=== PATIENT | female | born 1995 | race Caucasian/White ===

== ENCOUNTER 2017-02-20 12:04 | Inpatient (IN) | payer BC ==
[~2017-02-20] VITALS: Ht 165.1 cm; Wt 78.6 kg
[~2017-02-20 12:04] MED LIST: ACET500C5 PO; CEPH-443 PO; CIPR500T4 PO; NITR-58 PO; PHEN-538 PO
[2017-02-20 12:39] VITALS: Ht 165.1 cm; Wt 78.6 kg
[2017-02-20 12:40] VITALS: BP 127/82; PULSE 90; RESP 18
[2017-02-20] MEDS ORDERED: LACTATED RINGER'S 1,000 ML IV SCH (13:44)
--- NOTE | 2017-02-20 13:44 | TRIAGE ---
OB Triage Datetime Report Generated by CPN: 02/20/2017 13:43 Datetime: 02/20/2017 13:05 Labor Evaluation Frequency: 1-4 Monitor Mode: External Duration (sec)2399: 40-70 Quality: Mild Pattern: Normal: <= 5 Contractions in 10 Minutes Resting Tone [place]: Relaxed Heart Rate FHR Baseline Rate: 145 Monitor Mode: External US FHR Baseline Changes: No Baseline Change Variability: Moderate 6-25 bpm Accelerations: 15X15 Decelerations: None Category: Category I Pain Assessment Pain Scale: 0 Pain Presence: None/Denies Pain Type: N/A Pain Goal: 3 Membrane Status: Ruptured Datetime: 02/20/2017 13:03 Comments: Assume care of pt at this time, report take from Anuja RN Datetime: 02/20/2017 12:51 Vaginal Exam Dilatation (cms): 1.0 Effacement (%): 90 Station: -1 Exam By: GALEN RN Datetime: 02/20/2017 12:47 Assessment Type: Admission Assessment EGA: 39.5 Maternal Assessment Level of Consciousness: Fully Conscious DTR's/Clonus: DTRs 2+; No Clonus Headache: Denies Blurred Vision: No Respiratory Effort: Unlabored; Regular Rhythm; Equal Expansion Breath Sounds, Left: Clear and Equal Breath Sounds, Right: Clear and Equal Nausea/Vomiting: Denies RUQ Epigastric Pain: Denies Lower Extremities Edema: None Degree: None Upper Extremities Edema: None Degree: None Facial Edema: None Fall Risk Assessment History of Falling: (0) No Secondary Diagnosis: (0) No Ambulatory Aid: (0) Bedrest/Nurse Assist IV Therapy: (0) No Gait: (0) Normal/Bedrest/Immobile Mental Status: (0) Oriented to Own Ability Fall Score: 0 Fall Risk Score Definition: No Risk: No action required Labor Evaluation Frequency: 1.5-3 Monitor Mode: External Duration (sec)2399: 60-100 Quality: Mild Pattern: Normal: <= 5 Contractions in 10 Minutes Resting Tone [place]: Relaxed Heart Rate FHR Baseline Rate: 145 Monitor Mode: External US Variability: Moderate 6-25 bpm Accelerations: 15X15 Decelerations: None Category: Category I Pain Assessment Pain Scale: 0 Pain Presence: None/Denies Pain Type: N/A Pain Goal: 4 Datetime: 02/20/2017 12:45 Time of Arrival: 02/20/2017 11:55 Arrived By: Ambulatory Arrived From: Home Chief Complaint: LEAKING SINCE 1130 Movement: Present Contractions: Denies/Absent Rupture of Membranes: Denies Vaginal Bleeding: None Vaginal Discharge: Present Recent Sexual Intercouse: Denies Abdominal Trauma: Not Applicable Patient Complaints: Other Time Provider Notified: 02/20/2017 13:30 Provider Notified: DR JENKINS Initial Plan: NST, ROM+
[2017-02-20] MEDS ORDERED: CARBOPROST 250 MCG INJ IM PRN ×2 (14:00→15:00)
[2017-02-20] MEDS ORDERED: METHYLERGONOVINE 0.2 MG INJ IM PRN ×2 (14:00→15:00)
[2017-02-20] MEDS ORDERED: LIDOCAINE 1% (MPF) 30 ML INJ INJ PRN ×2 (14:00→15:00)
[2017-02-20] MEDS ORDERED: AMPICILLIN 2 GM/NS (PMX) 100 ML IV ONE (14:00)
[2017-02-20] MEDS ORDERED: LACTATED RINGER'S 1,000 ML IV PRN ×2 (14:00→16:00)
[2017-02-20] MEDS ORDERED: MISOPROSTOL 200 MCG TAB PR PRN (14:00)
[2017-02-20] MEDS ORDERED: OXYTOCIN 30 UNITS/LR 500 ML IV SCH ×3 (14:00→23:00)
[2017-02-20] MEDS ORDERED: IBUPROFEN 600 MG TAB PO PRN ×2 (14:00→15:00)
[2017-02-20] MEDS ORDERED: BUTORPHANOL 2 MG INJ IV PRN ×3 (14:00→15:00)
[2017-02-20] MEDS ORDERED: OXYTOCIN 30 UNITS/LR 500 ML IV PRN ×2 (14:00→15:00)
[2017-02-20 14:02] LABS: ADD SCAN DIFF NO
[2017-02-20 14:05] LABS: BASOPHILS % 0.4 % (0.0-2.0); EOSINOPHILS # 0.2 10^3/ul (0.0-0.5); EOSINOPHILS % 2.2 % (0.0-7.0); HEMATOCRIT 35.3 % (37.0-47.0); HEMOGLOBIN 11.9 g/dl (12.0-16.0); LYMPHOCYTES # 1.9 10^3/ul (0.8-2.9); MEAN CORPUSCULAR HEMOGLOBIN 28.3 pg (29.0-33.0); MEAN CORPUSCULAR HGB CONC 33.7 g/dl (32.0-37.0); MEAN CORPUSCULAR VOLUME 83.8 fl (82.0-101.0); MONOCYTE # 0.8 10^3/ul (0.3-0.9); MONOCYTES % 8.4 % (0.0-11.0); NEUTROPHIL # 6.6 10^3/ul (1.6-7.5); NEUTROPHILS % 68.1 % (39.0-77.0); PLATELET COUNT 155 10^3/UL (140-415); RED BLOOD COUNT 4.21 10^6/ul (4.20-5.40); RED CELL DISTRIBUTION WIDTH 13.6 % (11.5-14.5); WHITE BLOOD COUNT 9.6 10^3/ul (4.8-10.8)
[2017-02-20 14:19] LABS: INR 0.86; PROTIME 11.7 Sec (12.2-14.2); PT RATIO 0.9
[2017-02-20 14:20] LABS: PARTIAL THROMBOPLASTIN TIME 28.4 Sec (25.0-35.0)
--- NOTE | 2017-02-20 14:59 | RADRPT ---
PROCEDURE: Obstetrical ultrasound CLINICAL INDICATION: SROM TECHNIQUE: Multiple sonographic images of the pelvis were obtained. The images were reviewed on a PACS workstation. COMPARISON: Obstetrical ultrasound from 09/23/2016 FINDINGS: The cervix is not well visualized. There is a single viable intrauterine gestation. Cardiac activity is present with 126 beats per minute. There is a vertex presentation. The placenta is left lateral in location. There is no evidence for an abruption or placenta previa. There is a mildly low amount of amniotic fluid with an CHANTEL = 7.8 cm. Measurements were made in order to determine age. The results are as follows (cm): BPD =8.52 (34 weeks, 2 days) HC =31.51 (35 weeks, 3 days) AC =35.79 (39 weeks, 5 days) FL =7.32 (37 weeks, 3 days) FL/BPD = 85.8% (normal: 71-87%) HC/AC = 0.88 (normal: 0.92 - 1.06) FL/AC = 20.44 (normal: 20.0 - 24.0) Estimated gestational age by ultrasound of approximately 36 weeks, 5 days. The estimated date of delivery by ultrasound is 03/15/2017. Estimated gestational age by LMP of approximately 39 weeks, 5 days. The estimated date of delivery by LMP is 02/22/2017. EFW = 3365 grams (32nd percentile) IMPRESSION: Single viable intrauterine gestation of approximately 36 weeks, 5 days . The estimated date of delivery is 03/15/2017 . Dating by ultrasound is within 3 weeks of dating by LMP. Dating by BPD yields a gestational age of 34 weeks, 2 days while dating by AC yields a gestational a ge of 39 weeks, 5 days. The HC/AC ratio is mildly low at 0.88, as above. Estimated weight is in the 32nd percentile. Mildly low CHANTEL of 7.8 cm. Cephalic presentation. RPTAT: EE Physician Jordy Date Time Electronically viewed and signed by Ariel Chambers Physician on 02/20/2017 14:58 RA/
[2017-02-20] MEDS: LACTATED RINGER'S 1,000 ML IV SCH ×2 (15:38→20:37)
[2017-02-20] MEDS ORDERED: AMPICILLIN 1 GM/NS (PMX) 50 ML IV SCH (18:00)
--- NOTE | 2017-02-20 19:58 | HP ---
Date/Time of Note Date/Time of Note DATE: 02/20/17 TIME: 19:56 OB - History Hx of Present Chief Complaint: SROM Estimated Due Date: February 22, 2017 : 3 Para: 0 Spontaneous : 2 Therapeutic : 0 Care: Good Care Ultrasounds: Normal mid trimester US Obstetrical Complications: None Medical Complications: None Past Family/Social History * Past Medical, Surgical, Family and Obstetric Histories reviewed from chart. GBS Status: Negative OB Admission Exam Vital Signs Vital Signs Vital Signs Date Time Temp Pulse Resp B/P Pulse Ox O2 Delivery O2 Flow Rate FiO2 02/20/17 12:40 98.9 90 18 127/82 Room Air Physical Exam HEENT: WNL Heart: Rhythm Normal Lungs: Clear Abdomen: WNL Extremities: Normal Cervical Dilatation: 3cm Effacement: 75% Station: -1 Membranes: Ruptured Amniotic Fluid: Clear Heart Rate: 140's Accelerations: Accelerations Present Decelerations: No Decelerations Varibility: Moderate Last 72 hours Lab Results CBC & BMP 02/20/17 13:45 OB Assessment/Plan Reason for admission: active labor, rupture of membranes Plan: Expectant Management ALMAZ BENJAMIN MD February 20, 2017 19:58
[2017-02-21] MEDS: MISOPROSTOL 200 MCG TAB PR PRN ×2 (00:10→00:41)
--- NOTE | 2017-02-21 00:24 | LDN ---
Date/Time of Note Date/Time of Note DATE: 02/21/17 TIME: 00:21 Delivery Summary Weeks of Gestation 39 weeks and 5 days Placenta Delivered: Spontaneously Meconium: none Episiotomy: No Perineal laceration: 1 Laceration repair: Second degree laceration repaired with 3-0 Vicryl and 3-0 chromic Anesthesia type: Local Estimated blood loss: 700 Sponge & Needle done & correct: Yes All needle counts correct: Yes Any foreign bodies felt in the: No Problems: Infant Delivery Information Sex Infant Sex: male Apgars 1 Minute: 9 5 Minute: 9 Suctioning Nose & mouth suctioned at rika: Yes Delee suction performed: No Umbilical Cord Umbilical cord with: 3 Vessels Cord presentations: no nuchal cord Cord Blood was obtained: Yes Mother & Baby Disposition Disposition Mom & Baby to Maternity; Good: Yes ALMAZ BENJAMIN MD February 21, 2017 00:24
[2017-02-21] MEDS ORDERED: CEFAZOLIN 2 GM/50 ML (PMX) 50 ML IVPB ONE (00:50)
[2017-02-21] MEDS: OXYTOCIN 30 UNITS/LR 500 ML IV SCH ×2 (00:52)
[2017-02-21] MEDS ORDERED: MISOPROSTOL 200 MCG TAB PR PRN (01:30)
[2017-02-21] MEDS ORDERED: CARBOPROST 250 MCG INJ IM PRN (01:30)
[2017-02-21] MEDS ORDERED: ACETAMINOPHEN 325 MG TAB PO PRN (01:30)
[2017-02-21] MEDS ORDERED: BENZOCAINE 20% 56 ML SPRAY TOP PRN (01:30)
[2017-02-21] MEDS ORDERED: OXYTOCIN 30 UNITS/LR 500 ML IV PRN (01:30)
[2017-02-21] MEDS ORDERED: WITCH HAZEL/GLYCERIN PAD PR PRN (01:30)
[2017-02-21] MEDS ORDERED: ACETAMINOPHEN/CODEINE #3 TAB PO PRN (01:30)
[2017-02-21] MEDS ORDERED: DIBUCAINE 1% 30 GM OINT PR PRN (01:30)
[2017-02-21] MEDS ORDERED: METHYLERGONOVINE 0.2 MG INJ IM PRN (01:30)
[2017-02-21 02:30] VITALS: BP 132/68; PULSE 84; RESP 20
[2017-02-21] MEDS: IBUPROFEN 600 MG TAB PO SCH ×4 (05:38→23:30)
[2017-02-21] MEDS: LACTATED RINGER'S 1,000 ML IV* SCH ×2 (05:39→09:21)
[2017-02-21 06:00] VITALS: BP 120/75; PULSE 98; RESP 20
[2017-02-21 08:00] VITALS: BP 113/67; PULSE 87; RESP 17
[2017-02-21 08:10] LABS: ADD SCAN DIFF NO
[2017-02-21 08:30] LABS: BASOPHILS % 0.1 % (0.0-2.0); EOSINOPHILS % 0.1 % (0.0-7.0); HEMATOCRIT 22.6 % (37.0-47.0); LYMPHOCYTES # 1.6 10^3/ul (0.8-2.9); LYMPHOCYTES % 9.9 % (15.0-51.0); MEAN CORPUSCULAR HEMOGLOBIN 29.2 pg (29.0-33.0); MEAN CORPUSCULAR HGB CONC 34.5 g/dl (32.0-37.0); MEAN CORPUSCULAR VOLUME 84.6 fl (82.0-101.0); MONOCYTE # 1.3 10^3/ul (0.3-0.9); MONOCYTES % 8.3 % (0.0-11.0); NEUTROPHIL # 12.8 10^3/ul (1.6-7.5); NEUTROPHILS % 80.8 % (39.0-77.0); PLATELET COUNT 143 10^3/UL (140-415); RED BLOOD COUNT 2.67 10^6/ul (4.20-5.40); RED CELL DISTRIBUTION WIDTH 13.8 % (11.5-14.5); WHITE BLOOD COUNT 15.9 10^3/ul (4.8-10.8)
[2017-02-21 08:32] LABS: HEMOGLOBIN 7.8 g/dl (12.0-16.0)
[2017-02-21] MEDS: SENNA/DOCUSATE NA (8.6MG/50MG) TAB PO SCH ×2 (09:24→21:21)
[2017-02-21 12:00] VITALS: BP 109/60; PULSE 75; RESP 18
[2017-02-21] MEDS: FERROUS SULFATE (EC) 325 MG TAB PO SCH ×2 (13:00→21:20)
[2017-02-21 16:00] VITALS: BP 118/64; PULSE 81; RESP 17
[2017-02-21 20:30] VITALS: BP 118/65; PULSE 88; RESP 17
[2017-02-22 04:10] VITALS: BP 106/56; PULSE 79; RESP 17
[2017-02-22] MEDS: IBUPROFEN 600 MG TAB PO SCH ×3 (05:37→17:29)
[2017-02-22 08:03] LABS: ADD SCAN DIFF NO
[2017-02-22 08:08] LABS: BASOPHIL # 0.1 10^3/ul (0.0-0.1); BASOPHILS % 0.4 % (0.0-2.0); EOSINOPHILS # 0.2 10^3/ul (0.0-0.5); EOSINOPHILS % 1.7 % (0.0-7.0); HEMATOCRIT 21.6 % (37.0-47.0); LYMPHOCYTES # 2.9 10^3/ul (0.8-2.9); LYMPHOCYTES % 22.7 % (15.0-51.0); MEAN CORPUSCULAR HEMOGLOBIN 28.1 pg (29.0-33.0); MEAN CORPUSCULAR HGB CONC 32.4 g/dl (32.0-37.0); MEAN CORPUSCULAR VOLUME 86.7 fl (82.0-101.0); MEAN PLATELET VOLUME 12.1 fl (7.4-10.4); MONOCYTE # 1.1 10^3/ul (0.3-0.9); MONOCYTES % 8.9 % (0.0-11.0); NEUTROPHIL # 8.3 10^3/ul (1.6-7.5); NEUTROPHILS % 65.4 % (39.0-77.0); PLATELET COUNT 127 10^3/UL (140-415); RED BLOOD COUNT 2.49 10^6/ul (4.20-5.40); RED CELL DISTRIBUTION WIDTH 14.3 % (11.5-14.5); WHITE BLOOD COUNT 12.6 10^3/ul (4.8-10.8)
[2017-02-22 08:20] VITALS: BP 94/56; PULSE 77
[2017-02-22] MEDS: FERROUS SULFATE (EC) 325 MG TAB PO SCH ×2 (09:58→13:43)
[2017-02-22] MEDS: SENNA/DOCUSATE NA (8.6MG/50MG) TAB PO SCH (09:58)
--- NOTE | 2017-02-22 13:51 | QN ---
Documentation Comment No complaint Afebrile VSS Fudus Firm Lochia Scant Hgb 7 Patient is asymptomatic and hemodynamically stable Continue Fe supplement. ALMAZ BENJAMIN MD February 22, 2017 13:51
[2017-02-23] MEDS ORDERED: DIPHTH/TET/ACEL PERTUSS (ADULT) 0.5 ML VIAL IM* ONE (09:00)
--- NOTE | 2017-02-24 21:22 | DS ---
Date/Time of Note Date/Time of Note DATE: 02/24/17 TIME: 21:22 Obstetrical Discharge Record Final Diagnosis Final Diagnosis: Term delivered Vaginal Delivery Obstetrical Delivery: Spontaneous, Laceration, Repaired Condition on Discharge Physical Assessment Voiding: Yes Bowel Movement: Yes Breast: Soft, non-tender Fundus: Firm Calf Tenderness: No Patient Condition: Stable ALMAZ BENJAMIN MD February 24, 2017 21:22
== END 2017-02-22 19:35 | disposition home or self-care (01) | DRG 775 ==
LOC: OBT 12:04 → L-D 12:05 → OBT 13:38 → L-D 13:42 → PP1 02-21 02:19
PROVIDERS: ADMIT Obstetrics & Gynecology; ATTEND Obstetrics & Gynecology
PROC: 10E0XZZ Delivery of Products of Conception, External Approach (ICD-10-PCS; principal; 2017-02-21)
PROC: 0KQM0ZZ Repair Perineum Muscle, Open Approach (ICD-10-PCS; 2017-02-21)
PROC: 3E00X4Z Introduction of Serum, Toxoid and Vaccine into Skin and Mucous Membranes, External Approach (ICD-10-PCS; 2017-02-22)
DX: O70.1 Second degree perineal laceration during delivery (principal); Z37.0 Single live birth; Z23 Encounter for immunization; Z3A.39 39 weeks gestation of pregnancy
CPT/HCPCS: 76815; 84112; 85025; 85610; 85730; 86592; 86900; 86901; 87340; A4310; G0463; J0690; J2210; J2590; J7120

== ENCOUNTER 2017-11-17 19:59 | Emergency (ER) | END 2017-11-18 01:22 | disposition home or self-care (01) ==

== ENCOUNTER 2018-09-20 23:07 | Emergency (ER) | END 2018-09-21 02:10 | disposition left against medical advice (07) ==

== ENCOUNTER 2018-09-24 00:33 | Emergency (ER) | payer BC ==
[~2018-09-24] VITALS: Ht 165.1 cm; Wt 66.6 kg
[2018-09-24 00:36] VITALS: Ht 165.1 cm; Wt 66.6 kg
--- NOTE | 2018-09-24 01:37 | ERD ---
ER Documentation Chief Complaint Chief Complaint abdominal pain x 4 days, also c/o headache/left eye pain HPI This is a 23-year-old female who presents here in the emergency department with complaints of pelvic pain that is on and off for about a week. Stated it started on her right pelvic pain then is now on her left pelvic area. Complains of vaginal bleeding. Also complains of left eye redness and greenish to yellowish discharge in her canthus. LMP: 09/05/2018. A1 M1. Denies headache, head injury, loss of consciousness, dizziness, neck pain, neck stiffness, throat pain, difficulty swallowing, difficulty breathing lying flat, shoulder pain, chest pain, back pain, abdominal pain, nausea, vomiting, constipation, diarrhea, urinary symptoms, or possibility being , loss of bowel and bladder control, trauma, injury, falls, difficulty walking due to pain, numbness or tingling sensation, calf pain, recent travel, recent major surgery in the last 3 weeks, calf pain, recent long travel, recent exposure to any illness, recent antibiotic use in the last 3 months, fever, chills, seizures. Past medical history: Stated that she has history of ovarian cyst when she was 13 years old. Surgical history: Denies. Social: Denies smoking, use of alcoholic beverages, use of illegal drugs. ROS All systems reviewed and are negative except as per history of present illness. Medications Home Meds Active Scripts Erythromycin Base (Erythromycin) 1 Gm Oint...g., 1 APPLIC LEFT EYE QID for 7 Days Prov:KELVIN SUTHERLAND F 09/24/18 Ibuprofen* (Motrin*) 600 Mg Tab, 600 MG PO Q6H PRN for PAIN AND OR ELEVATED TEMP, #30 TAB Prov:KELVIN SUTHERLAND F 09/24/18 Reported Medications [none] Unknown Strength No Conflict Check 11/17/17 Allergies Allergies: Coded Allergies: No Known Drug Allergies (Verified Allergy, Unknown, 02/20/17) PMhx/Soc Medical and Surgical Hx: pt denies Medical Hx, pt denies Surgical Hx History of Surgery: No Anesthesia Reaction: No Hx Neurological Disorder: No Hx Respiratory Disorders: No Hx Cardiac Disorders: No Hx Psychiatric Problems: No Hx Miscellaneous Medical Probl: No Hx Alcohol Use: No Hx Substance Use: No Hx Tobacco Use: No Smoking Status: Never smoker Physical Exam Vitals Vital Signs Date Temp Pulse Resp B/P (MAP) Pulse Ox O2 O2 Flow FiO2 Time Delivery Rate 09/24/18 98.0 72 18 111/72 100 04:15 (85) 09/24/18 97.6 72 18 118/77 100 00:36 (91) Physical Exam Const: No acute distress Head: Atraumatic Eyes: Left eye: No visual field loss. Conjunctival injection. Noted yellowish to greenish discharge to inner canthus. Right eye: Mild conjunctival injection. No visual field loss. ENT: Normal External Ears, Nose and Mouth. Neck: Full range of motion. No meningismus. Resp: Clear to auscultation bilaterally Cardio: Regular rate and rhythm, no murmurs Abd: Soft, non tender, non distended. Normal bowel sounds. Negative [place] sign. Negative [place] sign (or test). Negative psoas sign. Negative Rovsing sign. No CVA tenderness. Mild pelvic tenderness. There is no swelling to inguinal area. Ambulatory with steady gait without pain to lower abdomen. Skin: No petechiae or rashes. No vesicular lesions. No skin tenting. No signs of severe dehydration. Back: No midline or flank tenderness Ext: No cyanosis, or edema Neur: Awake and alert. No neurological deficit. Psych: Normal Mood and Affect Result Diagram: 09/24/18 0145 09/24/18 014 Results 24 hrs Laboratory Tests Test 09/24/18 01:38 09/24/18 01:41 09/24/18 01:45 09/24/18 01:58 Urine Color STRAW Urine Clarity CLEAR Urine pH 6.0 Urine Specific 1.006 [place] Urine Ketones NEGATIVE mg/dL Urine Nitrite NEGATIVE mg/dL Urine Bilirubin NEGATIVE mg/dL Urine NEGATIVE mg/dL Urobilinogen Urine Leukocyte NEGATIVE Alanis/ul Esterase Urine NEGATIVE mg/dL Hemoglobin Urine Glucose NEGATIVE mg/dL Urine Total NEGATIVE mg/dl Protein POC Beta HCG, NEGATIVE NEGATIVE Qualitative White Blood 6.4 10^3/ul Count Red Blood Count 4.62 10^6/ul Hemoglobin 11.9 g/dl Hematocrit 37.2 % Mean 80.5 fl Corpuscular Volume Mean 25.8 pg Corpuscular Hemoglobin Mean 32.0 g/dl Corpuscular Hemoglobin Conc ent Red Cell 14.2 % Distribution Width Platelet Count 201 10^3/UL Mean Platelet 11.9 fl Volume Immature 0.200 % Granulocytes % Neutrophils % 48.2 % Lymphocytes % 40.5 % Monocytes % 7.6 % Eosinophils % 2.7 % Basophils % 0.8 % Nucleated Red 0.0 /100WBC Blood Cells % Immature 0.010 10^3/ul Granulocytes # Neutrophils # 3.1 10^3/ul Lymphocytes # 2.6 10^3/ul Monocytes # 0.5 10^3/ul Eosinophils # 0.2 10^3/ul Basophils # 0.1 10^3/ul Nucleated Red 0.0 10^3/ul Blood Cells # Sodium Level 140 mmol/L Potassium Level 4.0 mmol/L Chloride Level 107 mmol/L Carbon Dioxide 24 mmol/L Level Anion Gap 9 Blood Urea 11 mg/dl Nitrogen Creatinine 0.47 mg/dl Est Glomerular > 60 mL/min Filtrat Rate mL/min Glucose Level 89 mg/dl Calcium Level 9.0 mg/dl Total Bilirubin 0.2 mg/dl Direct 0.00 mg/dl Bilirubin Indirect 0.2 mg/dl Bilirubin Aspartate Amino 16 IU/L Transf (AST/SGO T) Alanine 16 IU/L Aminotransferas e (ALT/SGPT) Alkaline 67 IU/L Phosphatase Total Protein 7.1 g/dl Albumin 4.1 g/dl Globulin 3.00 g/dl Albumin/Globuli 1.36 n Ratio Amylase Level 124 U/L Lipase 142 U/L Procedures/MDM Diagnostic tests: POC urine : Negative. Urinalysis: Reviewed. Culture urine: Sent. Blood works: Viewed. Pelvic ultrasound: Mild pelvic free fluid. No sonographic evidence for an intrauterine gestation. If the patient has a positive test, an ectopic cannot be excluded. Clinical correlation is necessary. Treatment: Not applicable. Re-evaluation: Appears comfortable at the waiting area. Denies pelvic pain. No CVA tenderness. No abdominal tenderness. Ambulatory with steady gait without pain to abdomen. Differential diagnosis I have low suspicion for ovarian torsion, ovarian cyst rupture, sepsis, orbital cellulitis. Final diagnosis: Pelvic pain. Conjunctivitis. Prescription: Erythromycin ophthalmic ointment. Motrin. Follow-up with visual merchandising manager in the next 24-48 hours. Come back here in the emergency department for any new symptoms or any worsening symptoms. All questions and concerns were answered. Patient and family members verbalized understanding and agreed with plan of care. Hemodynamically stable on discharge. Departure Diagnosis: Primary Impression: Conjunctivitis Additional Impression: Pelvic pain Condition: Stable Additional Instructions: Follow-up with visual merchandising manager in the next 24-48 hours. Come back here in the emergency department for any new symptoms or any worsening symptoms. KELVIN SUTHERLAND Sep 24, 2018 01:37
[2018-09-24] MEDS ORDERED: ERYT1OIN6 LEFT EYE (04:09)
[2018-09-24] MEDS ORDERED: IBUP-1542 PO (04:09)
[2018-09-24 04:15] VITALS: BP 111/72; PULSE 72; RESP 18
== END 2018-09-24 04:26 | disposition home or self-care (01) ==
LOC: FTE 00:33
DX: H10.9 Unspecified conjunctivitis (principal)
CPT/HCPCS: 76830; 76856; 80053; 81003; 81025; 82150; 83690; 85025; 87086; Z7502